=== PATIENT | male | born 1985 | race African-American/Black ===

== ENCOUNTER 2016-03-02 18:43 | Emergency (ER) | payer SELFPAY ==
[2016-03-02 21:31] LABS: BASO # 0.1 x10^3/uL (0.0-0.2); BASO % 1 % (0-3); EOS % 3 % (0-3); HEMATOCRIT 46.7 % (39.0-53.0); HEMOGLOBIN 14.6 g/dL (13.0-17.5); LYMPH # 2.3 x10^3/uL (1.0-4.8); LYMPH % 34 % (24-48); MEAN CORPUSCULAR HEMOGLOBIN 26 pg (25-35); MEAN CORPUSCULAR HGB CONC 31 g/dL (31-37); MEAN CORPUSCULAR VOLUME 82 fL (79-100); MONO % 10 % (0-9); NEUT % 52 % (31-73); PLATELET COUNT 154 x10^3/uL (140-400); RED BLOOD COUNT 5.71 x10^6/uL (4.30-5.70); RED CELL DISTRIBUTION WIDTH 13.9 % (11.5-14.5); WHITE BLOOD COUNT 6.8 x10^3/uL (4.0-11.0)
--- NOTE | 2016-03-02 21:31 | EKG ---
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
[2016-03-02 21:33] LABS: BILIRUBIN,URINE NEGATIVE (NEG); GLUCOSE,URINE NEGATIVE (NEG); NITRITE,URINE NEGATIVE (NEG); PH,URINE 5.5; PROTEIN,URINE NEGATIVE (NEG-TRACE)
[2016-03-02 21:39] LABS: BARBITURATES NEG (NEG); BENZODIAZEPINES NEG (NEG); CANNABINOIDS POS (NEG); COCAINE NEG (NEG); METHADONE NEG (NEG); OPIATES NEG (NEG); PHENCYCLIDINE NEG (NEG)
[2016-03-02 21:41] LABS: ETHANOL, URINE NEG (NEG)
[2016-03-02 21:47] LABS: CALCIUM 9.3 mg/dL (8.5-10.1); CREATININE 1.3 mg/dL (0.7-1.3); POTASSIUM 3.6 mmol/L (3.5-5.1)
[2016-03-02 21:50] LABS: BACTERIA,URINE 0 /HPF (0-FEW); RBC,URINE 0 /HPF (0-2)
--- NOTE | 2016-03-02 21:50 | RAD ---
PROCEDURE CT head without contrast. HISTORY Blurred vision intermittently beginning last night. Headaches. TECHNIQUE Noncontrast CT head was obtained. One or more of the following individualized dose reduction techniques were utilized for this exam: 1. Automated exposure control. 2. Adjustment of the mA and/or kV according to patient's size. 3. Use of iterative reconstruction technique. COMPARISON None. FINDINGS The ventricles are normal in size and configuration. There is no intracranial hemorrhage or extra-axial fluid collection. There is no mass effect or midline shift. Cazares-white differentiation is preserved. There is no depressed skull fracture. The included paranasal sinuses and mastoid air cells are clear. IMPRESSION No acute intracranial findings. Electronically signed by: Nacho Winn MD (Mar 02, 2016 21:49:25)
[2016-03-02] MEDS ORDERED: HYDROCHLOROTHIAZIDE 12.5 MG CAPSULE. PO ONE (22:00)
[2016-03-02] MEDS ORDERED: HYDR12.53 PO (22:22)
[2016-03-02 22:41] VITALS: BP 135/85
--- NOTE | 2016-03-03 01:57 | ED.ADGEN ---
Past Medical History Past Medical History: No Pertinent History Past Surgical History: No Surgical History Alcohol Use: None Drug Use: None Adult General Chief Complaint Chief Complaint: BLURRED/DOUBLE VISION HPI HPI Patient is a 30 year old man, history of hypertension, who states he was initially placed on antihypertensive medications at age 20, but has been noncompliant for the last several years, who presents to the emergency department with a complaint of intermittent episodes of blurry vision, headache , and dizziness over the past several days. She denies symptoms, no weakness numbness or tingling. Patient states that he is concerned his blood pressure has been fluctuating and causing the symptoms. He denies any chest pain or back pain or shortness of breath, states that he has been experiencing generalized malaise over the past. Eating and drinking without issues, denies any injuries, denies any sick contacts or exposures. Blood pressure initially is 190/103, heart rate of 86, respiratory rate of 18, oxygen saturations 100% on room air. Patient has been experiencing pressure behind the left eye as well, and mild nasal congestion. No sore throat, no cough. Review of Systems Review of Systems Constitutional: Denies fever or chills. [] And malaise. Eyes: Denies change in visual acuity. [] HENT: Denies nasal congestion or sore throat. [] Respiratory: Denies cough or shortness of breath. [] Cardiovascular: Denies chest pain or edema. [] GI: Denies abdominal pain, nausea, vomiting, bloody stools or diarrhea. [] : Denies dysuria. [] Musculoskeletal: Denies back pain or joint pain. [] Integument: Denies rash. [] Neurologic: Frontal headache, blurred vision, left eye greater than right, no slurred speech, no confusion, no weakness, numbness or tingling. Endocrine: Denies polyuria or polydipsia. [] Lymphatic: Denies swollen glands. [] Psychiatric: Denies depression or anxiety. [] Current Medications Current Medications Current Medications Medications (Trade) Dose Ordered Sig/Zach Start Time Stop Time Status Last Admin Dose Admin Hydrochlorothiazide (Microzide) 12.5 mg 1X ONCE 03/02/16 22:00 03/02/16 22:01 DC 03/02/16 21:49 12.5 MG Allergies Allergies Allergies Coded Allergies Type Severity Reaction Last Updated Verified No Known Drug Allergies 03/02/16 No Physical Exam Physical Exam Constitutional: Well developed, well nourished, no acute distress, non-toxic appearance. [] HENT: Normocephalic, atraumatic, bilateral external ears normal, oropharynx moist, no oral exudates, turn and swelling noted with rhinorrhea bilaterally, no tenderness to palpation of the sinuses. TMs are clear bilaterally. Eyes: PERRLA, EOMI, conjunctiva normal, no discharge. [] Neck: Normal range of motion, no tenderness, supple, no stridor. [] Cardiovascular:Heart rate regular rhythm, no murmur [] Lungs & Thorax: Bilateral breath sounds clear to auscultation [] Abdomen: Bowel sounds normal, soft, no tenderness, no masses, no pulsatile masses. [] Skin: Warm, dry, no erythema, no rash. [] Back: No tenderness, no CVA tenderness. [] Extremities: No tenderness, no cyanosis, no clubbing, ROM intact, no edema. [] Neurologic: Alert and oriented X 3, normal motor function, normal sensory function, no focal deficits noted. [] Psychologic: Affect normal, judgement normal, mood normal. [] Current Patient Data Vital Signs Vital Signs Date Time Temp Pulse Resp B/P Pulse Ox O2 Delivery O2 Flow Rate FiO2 03/02/16 22:41 58 20 135/85 100 Room Air 03/02/16 20:47 98.1 98.1 Lab Values Laboratory Tests Test 03/02/16 21:15 White Blood Count 6.8x10^3/uL (4.0-11.0) Red Blood Count 5.71x10^6/uL (4.30-5.70) H Hemoglobin 14.6g/dL (13.0-17.5) Hematocrit 46.7% (39.0-53.0) Mean Corpuscular Volume 82fL (79-100) Mean Corpuscular Hemoglobin 26pg (25-35) Mean Corpuscular Hemoglobin Concent 31g/dL (31-37) Red Cell Distribution Width 13.9% (11.5-14.5) Platelet Count 154x10^3/uL (140-400) Neutrophils (%) (Auto) 52% (31-73) Lymphocytes (%) (Auto) 34% (24-48) Monocytes (%) (Auto) 10% (0-9) H Eosinophils (%) (Auto) 3% (0-3) Basophils (%) (Auto) 1% (0-3) Neutrophils # (Auto) 3.5x10^3uL (1.8-7.7) Lymphocytes # (Auto) 2.3x10^3/uL (1.0-4.8) Monocytes # (Auto) 0.6x10^3/uL (0.0-1.1) Eosinophils # (Auto) 0.2x10^3/uL (0.0-0.7) Basophils # (Auto) 0.1x10^3/uL (0.0-0.2) Urine Collection Type Unknown Urine Color Yellow Urine Clarity Clear Urine pH 5.5 Urine Specific [place] >=1.030 Urine Protein Negativemg/dL (NEG-TRACE) Urine Glucose (UA) Negativemg/dL (NEG) Urine Ketones (Stick) 15mg/dL (NEG) Urine Blood Negative (NEG) Urine Nitrite Negative (NEG) Urine Bilirubin Negative (NEG) Urine Urobilinogen Dipstick 1.0mg/dL (0.2 mg/dL) Urine Leukocyte Esterase Negative (NEG) Urine RBC 0/HPF (0-2) Urine WBC 1-4/HPF (0-4) Urine Bacteria 0/HPF (0-FEW) Urine Mucus Mod/LPF Sodium Level 139mmol/L (136-145) Potassium Level 3.6mmol/L (3.5-5.1) Chloride Level 100mmol/L (98-107) Carbon Dioxide Level 29mmol/L (21-32) Anion Gap 10 (6-14) Blood Urea Nitrogen 19mg/dL (8-26) Creatinine 1.3mg/dL (0.7-1.3) Estimated GFR (Cockcroft-Gault) 79.0 Glucose Level 76mg/dL (70-99) Calcium Level 9.3mg/dL (8.5-10.1) Urine Opiates Screen Neg (NEG) Urine Methadone Screen Neg (NEG) Urine Barbiturates Neg (NEG) Urine Phencyclidine Screen Neg (NEG) Urine Amphetamine/Methamphetamine Neg (NEG) Urine Benzodiazepines Screen Neg (NEG) Urine Cocaine Screen Neg (NEG) Urine Cannabinoids Screen Pos (NEG) Urine Ethyl Alcohol Neg (NEG) Laboratory Tests 03/02/16 21:15 Laboratory Tests 03/02/16 21:15 EKG EKG EC: Sinus rhythm, heart rate 55 bpm, patient with J-point elevation, possible left ventricular hypertrophy, QTC of 433, NM 150, QRS of 114, no ST depressions, abnormal ECG, does not meet STEMI criteria. As interpreted by me. Radiology/Procedures Radiology/Procedures [] [facility] [address] [place] [address] IMAGING REPORT Signed PATIENT: DEANNE SCHWAB ACCOUNT: [id number] : 1985 LOCATION: ER AGE: 30 SEX: M EXAM STATUS: REG ER ORD. PHYSICIAN: CHANEL LOPEZ DO REASON: PASTRANA/vision changes PROCEDURE: HEAD WO CONTRAST PROCEDURE CT head without contrast. HISTORY Blurred vision intermittently beginning last night. Headaches. TECHNIQUE Noncontrast CT head was obtained. One or more of the following individualized dose reduction techniques were utilized for this exam: 1. Automated exposure control. 2. Adjustment of the mA and/or kV according to patient's size. 3. Use of iterative reconstruction technique. COMPARISON None. FINDINGS The ventricles are normal in size and configuration. There is no intracranial hemorrhage or extra-axial fluid collection. There is no mass effect or midline shift. Cazares-white differentiation is preserved. There is no depressed skull fracture. The included paranasal sinuses and mastoid air cells are clear. IMPRESSION No acute intracranial findings. Electronically signed by: Nacho Winn MD (Mar 02, 2016 21:49:25) DICTATED and SIGNED BY: NACHO WINN MD DATE: 03/02/16 2149 CC: CHANEL LOPEZ DO; NO PCP ~ Course & Med Decision Making Course & Med Decision Making Pertinent Labs and Imaging studies reviewed. (See chart for details) Due to patient's complaints of headache, and blurry vision, without any associated injury, and history of early onset hypertension for which he has been medically noncompliant, basic laboratory studies and imaging of the brain were obtained. Although patient has no chest pain or shortness of breath, baseline ECG was obtained, which shows evidence of possible underlying possible left ventricular hypertrophy, J-point elevation, which would be consistent with the patient's age and body habitus. CT of the head revealed no evidence of infarction or other concerning finding, laboratory studies otherwise unremarkable aside from evidence of mild dehydration. Patient also may be expressing a viral upper respiratory infection, with mild rhinorrhea and pressure behind eyes are sinus congestion as stated. I discussed the findings with the patient, he is resting comfortable, blood pressure has improved at this point, he has received Predcor thiazide in the ED, currently is 86, he states his headache is resolved at this time. I discussed with patient the importance of establishing a primary care provider, for general medical care and follow-up, and concerning symptoms that prompt return. Patient voiced understanding and agreement with this plan, was discharged with a prescription for hydrochlorothiazide 12.5 mg, and contact information to establish a primary care provider. To follow-up as directed, and to return to the ED for concerning symptoms as discussed. Dragon Disclaimer Dragon Disclaimer This electronic medical record was generated, in whole or in part, using a voice recognition dictation system. Departure Impression: Primary Impression: Viral illness Additional Impression: Hypertension Disposition: 01 HOME, SELF-CARE Condition: IMPROVED Scripts Hydrochlorothiazide (Hydrochlorothiazide Capsule )12.5 Mg Xhbjaxl02.5 Mg PO DAILY DIURETIC #30 CAP Ref 0 Prov:CHANEL LOPEZ DO 03/02/16 Problem Qualifiers Additional Impression: Hypertension Hypertension type: essential hypertension Qualified Code: I10 - Essential ( primary) hypertension CHANEL LOPEZ DO Mar 03, 2016 01:57
== END 2016-03-02 22:44 | disposition home or self-care (01) ==
LOC: ER 18:43
DX: I10 Essential (primary) hypertension (principal); B34.9 Viral infection, unspecified; R51 Headache; R42 Dizziness and giddiness; H53.8 Other visual disturbances
CPT/HCPCS: 36415; 70450; 80048; 81001; 85027; 93005; 99285; G0481; 99283